=== PATIENT | female | born 1985 | race African-American/Black ===

== ENCOUNTER 2017-07-25 21:12 | Emergency (ER) | payer OTHER ==
[~2017-07-25] VITALS: Ht 165.1 cm; Wt 81.8 kg
[2017-07-25 21:55] VITALS: BP 142/77; PULSE 73; RESP 20; TEMP 99; O2SAT 100
[2017-07-25] MEDS ORDERED: CEPHALEXIN MONOHYDRATE 500 MG CAP PO ONE (23:45)
[2017-07-25] MEDS ORDERED: CEPH-460 PO (23:46)
--- NOTE | 2017-07-25 23:47 | PD ---
HPI Chief Complaint: Lump, Cyst, Hernia Time Seen by Provider: 23:34 Travel History International Travel<30 days: No Contact w/Intl Traveler<30days: No Traveled to known affect area: No History of Present Illness HPI Patient is a 32-year-old female who presents the emergency room complaints of abscess to her right axilla. Patient reports that she noticed this abscess yesterday, request to have this drained. Denies fever/chills. In addition, patient requests to have breast cancer screening as she does not have a pcp or electrical integrator. PFSH Past Medical History Medical History: Denies Significant Hx Tetanus Vaccination: < 5 Years Influenza Vaccination: Yes ?: Unknown LMP: 07/05/17last day Ectopic : Yes (1 tube removed) Past Surgical History Section: Yes (x1) Social History Alcohol Use: Yes (occ) Tobacco Use: Yes Substance Use: No Allergies-Medications (Allergen,Severity, Reaction): Coded Allergies: No Known Allergies (Verified Allergy, Unknown, 07/25/17) Review of Systems General / Constitutional: No: Fever Eyes: No: Visual changes HENT: No: Headaches Cardiovascular: No: Chest Pain or Discomfort Respiratory: No: Shortness of Breath Gastrointestinal: No: Abdominal Pain Genitourinary: No: Dysuria Musculoskeletal: No: Pain Skin: Positive Other (abscess to right axilla), No Rash Neurologic: No: Weakness Psychiatric: No: Depression Endocrine: No: Polydipsia Hematologic/Lymphatic: No: Easy Bruising Physical Exam Narrative GENERAL: Well-nourished, well-developed patient. SKIN: Focused skin assessment warm/dry. HEAD: Normocephalic. EYES: No scleral icterus. No injection or drainage. NECK: Supple, trachea midline. No JVD or lymphadenopathy. CARDIOVASCULAR: Regular rate and rhythm without murmurs, gallops, or rubs. RESPIRATORY: Breath sounds equal bilaterally. No accessory muscle use. GASTROINTESTINAL: Abdomen soft, non-tender, nondistended. MUSCULOSKELETAL: No cyanosis, or edema. Patient with nonfluctuant abscess to right axilla with no underlying cellulitis BACK: Nontender without obvious deformity. No CVA tenderness. Data Data Last Documented VS Vital Signs Date Time Temp Pulse Resp B/P (MAP) Pulse Ox O2 Delivery O2 Flow Rate FiO2 07/25/17 21:55 99.0 73 20 142/77 (98) 100 Orders Orders Ed Urine Pregnancytest Poc (07/25/17 23:39) Cephalexin (Keflex) (07/25/17 23:45) MDM Medical Decision Making Medical Screen Exam Complete: Yes Emergency Medical Condition: Yes Medical Record Reviewed: Yes Interpretation(s) Vital Signs Date Time Temp Pulse Resp B/P (MAP) Pulse Ox O2 Delivery O2 Flow Rate FiO2 07/25/17 21:55 99.0 73 20 142/77 (98) 100 Differential Diagnosis abscess Narrative Course Patient with nonfluctuant abscess to the right axilla, plan to start patient on antibiotics, discussed need for warm compresses to have this abscess come to a head. Patient will be reevaluated in 48 hours for incision and drainage of this abscess. Discussed with patient need to follow-up with her electrical integrator for a breast cancer evaluation. Signs and symptoms of when to return to the emergency room was reviewed with the patient in detail. Diagnosis Primary Impression: Abscess Patient Instructions: General Instructions Additional Instructions: Please apply warm compresses to your abscess, return to the emergency room in 48 hours for reevaluation and possible I&D of this abscess Please take antibiotics as prescribed Please follow-up with your electrical integrator for breast cancer evaluation and screening Return to the emergency room as needed Med/Other Pt SpecificInfo: Prescription(s) given Scripts Cephalexin (Keflex) 500 Mg Cap 500 MG PO Q6H for Infection for 7 Days, #28 CAP 0 Refills Prov: Suzanna Monzon DO 07/25/17 Disposition: 01 DISCHARGE HOME Condition: Stable Suzanna Monzon DO Jul 25, 2017 23:47
== END 2017-07-26 00:14 | disposition home or self-care (01) ==
LOC: NEPD 21:12
DX: L02.411 Cutaneous abscess of right axilla (principal); Z72.0 Tobacco use
CPT/HCPCS: 99283